=== PATIENT | male | born 1950 | race Caucasian/White ===

== ENCOUNTER 2019-03-28 11:01 | Emergency (ER) | payer SELFPAY ==
[~2019-03-28] VITALS: Ht 162.6 cm; Wt 68.2 kg
[2019-03-28 11:03] VITALS: BP 156/90
[2019-03-28] MEDS ORDERED: ACET-2247 PO (11:05)
== END 2019-03-28 12:27 | disposition home or self-care (01) ==
LOC: EMS 11:09 → EDSEX 11:09 → EMS 12:27
DX: R33.9 Retention of urine, unspecified (principal); N32.0 Bladder-neck obstruction; Z90.49 Acquired absence of other specified parts of digestive tract; Z98.890 Other specified postprocedural states

== ENCOUNTER 2019-03-31 11:54 | Emergency (ER) | payer MEDICARE, OTHER ==
[~2019-03-31] VITALS: Ht 162.6 cm; Wt 77.3 kg
[~2019-03-31 11:54] MED LIST: ACET-2247 PO
[2019-03-31 11:59] VITALS: BP 148/90
[2019-03-31] MEDS ORDERED: TAMS-13 PO (12:07)
[2019-03-31] MEDS ORDERED: CIP250 PO (12:07)
== END 2019-03-31 14:00 | disposition home or self-care (01) ==
LOC: EMS 11:55
DX: T83.091A Other mechanical complication of indwelling urethral catheter, initial encounter (principal); Z46.6 Encounter for fitting and adjustment of urinary device; Z79.899 Other long term (current) drug therapy